=== PATIENT | male | born 1960 | race Caucasian/White ===

== ENCOUNTER 2017-02-17 11:31 | Emergency (ER) | payer BC, MEDICARE, OTHER ==
[~2017-02-17] VITALS: Ht 167.6 cm; Wt 73.9 kg
[~2017-02-17 11:31] MED LIST: BACTRIM-DS1 EA ORAL; CEPHALEXIN500 MG ORAL; CRESTOR10 M1 ORAL; DIPHENHYDRAMINE25 M1 ORAL; ISENTRESS400 MG ORAL; KLONOPIN0.5 MG ORAL; NORVIR100 MG ORAL; PAROXETINE HCL10 MG ORAL; PAXIL20 MG ORAL; PREZISTA400 MG ORAL; TRUVADA 200 MG1 EAC1 ORAL
[2017-02-17] MEDS ORDERED: HIV meds (11:51)
--- NOTE | 2017-02-17 12:59 | Diagnostic Imaging Report ---
Indications: PAIN, twisted knee 3 days ago Technique: Three views of the left knee Comparison: None Findings: No acute fractures. No dislocations. Joint spaces are preserved. No radiopaque foreign body. Normal mineralization. Impression: No acute process
[2017-02-17] MEDS ORDERED: IBUPROFEN600 MG ORAL (13:20)
[2017-02-17 13:26] VITALS: BP 120/72
--- NOTE | 2017-02-17 15:12 | Emergency Room Report ---
History of Present Illness General Chief Complaint: Lower Extremity Injury Source: Patient Present Illness HPI 56-year-old male presents ED complaining left knee pain. States that when hiking down a hill on Tuesday he felt his knee twist. Feels that there is clicking sensation in his left knee. Pain is mild, 2/10, nonradiating. States he is able to bear weight. Denies any other injuries. No other aggravating relieving factors. Denies any other associated symptoms Allergies: Coded Allergies: No Known Allergies (Unverified , 12/09/13) Patient History Past Medical History: none Past Surgical History: none Pertinent Family History: none Social History: Denies: smoking, alcohol use, drug use Immunizations: UTD Reviewed Nursing Documentation: PMH: Agreed, PSxH: Agreed Nursing Documentation-PMH Past Medical History: No History, Except For Hx Cardiac Problems: No - HIV Review of Systems All Other Systems: negative except mentioned in HPI Physical Exam Vital Signs Date Time Temp Pulse Resp B/P (MAP) Pulse Ox O2 Delivery O2 Flow Rate FiO2 02/17/17 11:45 98.6 64 18 118/71 98 Room Air Sp02 EP Interpretation: reviewed, normal General Appearance: no apparent distress, alert, GCS 15, non-toxic Head: normocephalic Eyes: bilateral eye normal inspection, bilateral eye PERRL ENT: normal ENT inspection Neck: normal inspection Respiratory: normal inspection Cardiovascular #1: normal inspection Gastrointestinal: normal inspection Rectal: deferred Genitourinary: no CVA tenderness Musculoskeletal: normal range of motion, tender Neurologic: alert, oriented x3, responsive, motor strength/tone normal, sensory intact, speech normal Psychiatric: normal inspection Skin: normal inspection Lymphatic: normal inspection Procedures Splinting Splinting : Consent: Verbal Pre-Made Type: BRIGETTE wrap - L knee Pre-Proc Neuro Vasc Exam: normal Post-Proc Neuro Vasc Exam: normal Patient Tolerated: Well Complications: None Medical Decision Making Diagnostic Impression: Primary Impression: Knee sprain Qualified Codes: S83.92XA - Sprain of unspecified site of left knee, initial encounter ER Course Hospital Course 56-year-old M presents to ED complaining of L knee pain Differential diagnoses include: Fracture, dislocation, sprain, contusion Clinical course Patient placed on stretcher. After initial history and physical, I ordered xrays L knee Xrays prelim read shows no acute fracture/dislocation. placed in brigette wrap, given crutches Diagnosis - knee sprain Stable and discharged to home with prescription for Motrin. apply ice, keep elevated. weight bear as tolerated. Followup with PMD. Return to ED if symptoms recur or worsen Other X-Ray Diagnostic Results Other X-Ray Diagnostic Results : X-Ray ordered: L knee # of Views/Limited Vs Complete: 3 View Indication: Pain EP Interpretation: Yes Interpretation: no dislocation, no soft tissue swelling, no fractures, nonspecific bowel gas Impression: No acute disease Electronically Signed by: Electronically signed by eBto Griffin MD Last Vital Signs Date Time Temp Pulse Resp B/P (MAP) Pulse Ox O2 Delivery O2 Flow Rate FiO2 02/17/17 13:26 98.6 68 18 120/72 98 Room Air Status: improved Disposition: HOME, SELF-CARE Condition: Stable Scripts Ibuprofen* (MOTRIN*) 600 Mg Tablet 600 MG ORAL Q8H Y for For Pain, #30 TAB 0 Refills Prov: BETO GRIFFIN M.D. 02/17/17 Patient Instructions: Knee Sprain, [id number] BETO GRIFFIN M.D. Feb 17, 2017 15:12
== END 2017-02-17 13:35 | disposition home or self-care (01) ==
LOC: EMR 12:10
DX: S83.92XA Sprain of unspecified site of left knee, initial encounter (principal); X50.1XXA Overexertion from prolonged static or awkward postures, initial encounter; Y93.01 Activity, walking, marching and hiking; Y92.828 Other wilderness area as the place of occurrence of the external cause
CPT/HCPCS: 99283